=== PATIENT | male | born 1980 | race Caucasian/White ===

== ENCOUNTER 2023-02-27 14:32 | Outpatient (AMB) | payer OTHER, SELFPAY ==
--- NOTE | 2023-02-27 14:33 | A.OFFVIS_ITS ---
Intake Vital Signs 02/27/23 14:36 Height 6 ft 1 in Weight 284 lb 6.341 oz BMI 37.5 BP 122/80 Blood Pressure Location Lt brachial Position Sitting Pulse 85 Pulse Source Pulse Oximeter Pulse Oximetry (%) 95 Oxygen Delivery Method Room Air Intake Visit Reasons: Cough Quality Assurance Qa Lab Technician Required: No Service Promoter Salesperson: Service Promoter Salesperson offered & declined Accompanied by: Self / Same As Patient Allergies Penicillins [PENICILLINS] Allergy (Unknown, Unverified 02/27/23 14:40) REACTION UNKNOWN Penicillin Allergy (Unknown, Uncoded 02/27/23 14:40) unknown Medication List - Last Reconciled 02/27/23 by Charo Richter LPN albuterol sulfate 90 mcg/actuation (Ventolin HFA) 2 puffs inhalation Q4-6H PRN benzonatate 100 mg PO BID-TID PRN bupropion HCl 300 mg PO QAM fluoxetine 20 mg PO DAILY lorazepam 0.5 mg PO DAILY PRN HPI Cough HPI Details Gonzalo is a pleasant 42 year old male, former smoker with 12 pack year history, quit 7 years ago with underlying asthma. He was referred by PCP for persistent cough. He reports symptoms started about a month ago with dyspnea, wheezing, dry cough but sometimes productive with green sputum. He also notes allergic symptoms as well as sinus pressure. He denied any fever, chills or known sick contacts. He was seen at an urgent care when symptoms started, CXR reportedly normal and prescribed prednisone with no change in symptoms. He was then recently seen by PCP for ongoing symptoms, treated for bronchitis with albuterol MDI along with doxycycline and finished a 7 day course on 02/23/23 with no improvement in symptoms. He can not say for certain if he had childhood as thma but was prescribed an inhaler at some point in adolescence but never used it. He denies any recent PFT. He does report environmental allergies and has a dog. He denies any recent allergy testing. He denies any family history of lung conditions. [facility] Social History (Updated 02/27/23 @ 14:43 by Charo Richter LPN) Patient Tobacco Use Status: Former Tobacco user Tobacco use type: Cigarette Cigarette Packs Per Day: 1 Cigarettes Per Day: 20 Years Smoked: 20 years intermittently. Review of Systems Const Denies chills, Denies excessive sweating, Denies fever(s), Denies headache(s) and Denies night sweats Eyes Denies dry eyes, Denies irritation and Denies itchy eyes ENT Reports Normal hearing present, Denies headache(s), Denies nasal congestion, Denies nasal discharge, Denies post nasal drip and Denies sore throat Card Denies chest pain, Denies chest pain at rest, Denies chest pain with activity, Denies leg edema and Denies paroxysmal nocturnal dyspnea Resp Denies excessive phlegm production, Denies pain on inspiration, Denies pain with cough and Denies stridor Musc Denies myalgias Neuro Reports Normal hearing present and Denies headache(s) Endo Denies excessive sweating Carlos/Lymph Denies lymphadenopathy Aller/Immun Denies itchy eyes and Denies seasonal rhinorrhea Physical Exam Vital Signs: Last Vital Signs Pulse 85 02/27/23 14:36 BP 122/80 02/27/23 14:36 Pulse Ox 95 02/27/23 14:36 Oxygen Delivery Method Room Air 02/27/23 14:36 BMI result Body Mass Index 37.5 Const General: cooperative, comfortable, no acute distress, well developed and alert Nutritional Appearance: obese Orientation/consciousness: patient oriented x3 Limitations: no limitations HEENT Head: Yes normal to inspection, Yes normocephalic and Yes atraumatic Ears: hearing grossly normal bilaterally and external ears normal Eyes General: appearance normal, both eyes and all related structures Eyelids: Yes eyelids normal Sclerae: sclerae normal EOM: EOMs intact bilaterally Neck Neck: Yes normal visual inspection and Yes no lymphadenopathy Lymphatic: no lymphadenopathy noted Chest Chest palpation & inspection: normal inspection of the chest Resp Effort & Inspection: normal respiratory effort, able to speak in complete sentences, no audible wheezes, no stridor, not tachypneic, no tripod positioning and no use of accessory muscles Auscultation: crackles (inspiratory faint crackles bilateral bases) and wheezes expiratory wheezes and throughout Cardio Jugular venous distension: no JVD Rate: regular rate Rhythm: regular rhythm Skin Other: warm, dry General skin exam: no rashes or lesions noted Neuro General: patient oriented x3 Cranial nerves: Yes Normal hearing present Cognition (Neuro): normal cognition Gait exam (Neuro): Normal gait present Extrem General: Yes normal to inspection, Yes capillary refill normal, Yes no clubbing, cyanosis or edema and Yes no pedal edema Psych Appearance: grossly normal and well kempt Speech and movement: Normal speech and movement present and Clear speech present Affect: normal affect Attitude: cooperative Thought process: Normal thought process present Thought content: Normal thought content present Insight: Good insight present (Psych) Judgement: Good judgement present (Psych) Assessment & Plan Assessment & Plan (1) Asthma: Code(s): J45.909 - Unspecified asthma, uncomplicated (2) Environmental allergies: Code(s): Z91.09 - Other allergy status, other than to drugs and biological substances (3) Cough: Code(s): R05.9 - Cough, unspecified Plan Gonzalo presents with acute symptoms that have been unresponsive to doxycycline and short course of prednisone. Will treat for bronchopneumonia with Vantin and extended course of prednisone, as patient with inspiratory crackles and wh eezing. Will also send for CXR and lab work. If symptoms do not resolve, consider sputum and chest CT. Once patient is back to baseline, will have PFT performed. All questions were answered and patient is in agreement of plan. Will follow up in four weeks. Orders: Orders Rast Allergen 02/27/23 Z91.09 - Other allergy status, other than to drugs and biological substances XR chest 2V 02/27/23 R05.9 - Cough, unspecified Complete Blood Count Auto Diff 02/27/23 R05.9 - Cough, unspecified PFT pulmonary function test 02/27/23 J45.909 - Unspecified asthma, uncomplicated, R05.9 - Cough, unspecified Medications: New cefpodoxime must administer with a meal/food 200 mg PO BID 14 tabs 0RF prednisone see taper instructions; 40 mg Daily for three days, 30 mg daily for three days, 20 mg daily for three days, 10 mg daily for three days 10 mg PO DIRECTED 30 tabs 0RF Coding Level of Care Code New Pt Level 4 (70226) Diagnoses Asthma J45.909 Environmental allergies Z91.09 Cough R05.9
[2023-02-27 14:36] VITALS: BP 122/80; PULSE 85; O2SAT 95; BMI 37.5
== END 2023-02-27 15:14 | disposition home or self-care (01) ==
PROVIDERS: PCP Internal Medicine; Visit Provider Nurse Practitioner Family
DX: J45.909 Unspecified asthma, uncomplicated (principal); Z91.09 Other allergy status, other than to drugs and biological substances; R05.9 Cough, unspecified
CPT/HCPCS: 99204

== ENCOUNTER 2023-02-27 14:32 | Outpatient (REF) | payer OTHER, SELFPAY ==
--- NOTE | ~2023-02-27 | XR_ITS ---
EXAMINATION: XR CHEST CLINICAL INFORMATION: Cough, unspecified COMPARISON: None available. TECHNIQUE: 2 views of the chest were obtained. 1537 FINDINGS: The lungs are slightly hypoinflated. There is no focal infiltrate, interstitial pulmonary edema or pneumothorax. Central peribronchial thickening is noted. No significant abnormality is noted involving the heart, mediastinum, bony thorax or soft tissues. XR/XR chest 2V IMPRESSION: No pneumonia. Central peribronchial thickening is noted, could be related to bronchitis.
[2023-02-27 15:31] LABS: MANUAL DIFF FLAG NO
[2023-02-27 15:44] LABS: Basophils Absolute Auto 0.1 X10*3/uL (0.0-0.2); Basophils Percent Auto 0.7 % (0-2); Eosinophils Absolute Auto 0.2 X10*3/uL (0.0-0.4); Eosinophils Percent Auto 2.9 % (0-4); Hematocrit 49.8 % (42.0-52.0); Hemoglobin 16.3 g/dl (14.0-18.0); Imm Gran Abs Auto 0.01 X10*3/uL (0.00-0.03); Imm Gran Pct Auto 0.1 % (0.0-0.4); Lymphocytes Absolute Auto 2.2 X10*3/uL (1.2-4.9); Lymphocytes Percent Auto 30.2 % (20-40); Mean Corpuscular HGB Conc 32.7 g/dl (31.0-36.0); Mean Corpuscular Hemoglobin 28.9 pg (27.0-33.0); Mean Corpuscular Volume 88.3 fL (80.0-98.0); Mean Platelet Volume 10.4 fL (9.4-12.4); Monocytes Percent Auto 14.2 % (2-11); Neutrophils Absolute Auto 3.7 x10*3/uL (2.0-8.3); Neutrophils Percent Auto 51.9 % (45-73); Platelet Count 202 X10*3/uL (160-400); Red Blood Count 5.64 X10*6/uL (4.60-5.80); Red Cell Distribution Width 13.1 % (11.0-16.0); White Blood Count 7.2 X10*3/uL (4.8-10.8)
== END 2023-02-27 14:33 | disposition home or self-care (01) ==
LOC: HO.LAB 14:32
PROVIDERS: PCP Internal Medicine; Visit Provider Nurse Practitioner Family
DX: J45.909 Unspecified asthma, uncomplicated (principal); R05.9 Cough, unspecified; Z91.09 Other allergy status, other than to drugs and biological substances
CPT/HCPCS: 36415; 71046; 82785; 85025; 86003

== ENCOUNTER 2023-03-12 08:21 | Outpatient (REF) | payer OTHER, SELFPAY ==
--- NOTE | 2023-03-12 08:56 | PFT_ITS ---
INDICATION: Asthma. SPIROMETRY: FEV1 to FVC of 79% with an FEV1 of 2.93 L, which is 63% predicted and FVC of 3.69 L, which is 63% predicted. No significant response to bronchodilators noted. Of note, the DCQ77-51 decreased to 51% predicted, suggesting small airway disease related likely to the diagnosis of asthma. Maximum voluntary ventilation only 58% predicted. Total lung capacity 63% predicted with an expiratory reserve volume of 60% predicted. DIFFUSION CAPACITY: DLCO 84% predicted. COMPARISONS: None. INTERPRETATION: No obstructive ventilatory defect. No significant response to bronchodilators noted, although the patient does have small airway disease, which could be secondary to asthma and also the elevated BMI. There is also a moderate decrease in the maximum voluntary ventilation, which could be secondary to deconditioning, although cannot rule out neuromuscular conditions. The patient does have a restrictive ventilatory defect consistent with mild to moderate restrictive lung disease, likely secondary to an elevated BMI and hyperexpansion of the lungs, although parenchymal lung conditions and or neuromuscular conditions could also be considered. Diffusion capacity is within normal limits. Clinical correlation is warranted. MD MAKENNA Vu/TALA / [phone]
== END 2023-03-12 08:22 | disposition home or self-care (01) ==
LOC: HO.RESP 08:21
PROVIDERS: PCP Internal Medicine; Visit Provider Nurse Practitioner Family
DX: R05.9 Cough, unspecified (principal); J45.909 Unspecified asthma, uncomplicated
CPT/HCPCS: 94010; 94727; 94729

== ENCOUNTER → 2023-03-12 08:56 | Outpatient (BNV) | payer OTHER, SELFPAY | PROVIDERS: PCP Internal Medicine; Visit Provider Hospitalist | DX: J45.909 Unspecified asthma, uncomplicated (principal) | CPT/HCPCS: 94060; 94727; 94729 ==

== ENCOUNTER 2023-04-04 15:04 | Outpatient (REF) | payer OTHER, SELFPAY ==
--- NOTE | ~2023-04-04 | CT_ITS ---
EXAMINATION: CT CHEST WITHOUT CONTRAST CLINICAL INFORMATION: Cough. COMPARISON: None available. TECHNIQUE: Multidetector volumetric CT imaging of the chest was done. Axial MIP volume rendering provided. Sagittal and coronal reformatted images were obtained. This CT examination was performed using dose optimization techniques as appropriate, variously including the following: *Automated exposure control *Adjustment of mA and/or kV according to patient size (this includes techniques or standardized protocols for targeted exams where dose is matched to indication/reason for exam; i.e. extremities or head) *Use of iterative reconstruction technique DLP: 359 mGy-cm. FINDINGS: CUSTOMER RELATIONS REPRESENTATIVE: Well-expanded lungs. LUNGS: Lungs are clear with no acute pneumonic process seen. There are no pulmonary nodules, mass, consolidation or groundglass density. MEDIASTINUM: The thyroid lobes are symmetrical and normal. Central trachea and the bronchi are widely patent. Heart size and the great vessels are normal caliber. There is no pericardial effusion. No abnormal-sized mediastinal or hilar lymph nodes seen. CORONARY ARTERY CALCIFICATION: There is mild coronary artery calcifications present. PLEURA: There is no pleural effusion. No pleural mass or thickening. AXILLA: There are small shotty bilateral axillary lymph nodes. UPPER ABDOMEN: Visualized liver, spleen, pancreas and bilateral adrenal glands are unremarkable. There are no radiopaque gallstones. OSSEOUS STRUCTURES: No aggressive lytic or sclerotic process seen. CT/CT chest wo IV con IMPRESSION: Unremarkable CT chest exam. Fleischner guidelines were followed.
== END 2023-04-04 15:05 | disposition home or self-care (01) ==
LOC: HO.CT 15:04
PROVIDERS: Visit Provider Nurse Practitioner Family
DX: R05.9 Cough, unspecified (principal)
CPT/HCPCS: 71250

== ENCOUNTER 2023-04-10 14:58 | Outpatient (AMB) | payer OTHER, SELFPAY ==
[2023-04-10 15:05] VITALS: BP 110/80; PULSE 80; O2SAT 95
--- NOTE | 2023-04-10 15:05 | MHC.OFFVIS ---
Intake Vital Signs 04/10/23 15:05 Weight 286 lb 9.615 oz BP 110/80 Blood Pressure Location Lt brachial Position Sitting Pulse 80 Pulse Source Pulse Oximeter Pulse Oximetry (%) 95 Oxygen Delivery Method Room Air Intake Visit Reasons: CT Chest Follow Up/Cough Allergies Penicillins [PENICILLINS] Allergy (Unknown, Unverified 04/10/23 15:07) REACTION UNKNOWN Penicillin Allergy (Unknown, Uncoded 04/10/23 15:07) unknown Medication List - Last Reconciled 04/10/23 by Nguyen Franks LPN albuterol sulfate 90 mcg/actuation (Ventolin HFA) 2 puffs inhalation Q4-6H PRN albuterol sulfate 2.5 mg (3 mL) inhalation Q4-6H PRN benzonatate 100 mg PO BID-TID PRN bupropion HCl 300 mg PO QAM cefpodoxime 200 mg PO BID fluoxetine 20 mg PO DAILY fluticasone propion-salmeterol 250-50 mcg/dose (Advair Diskus) 1 inh inhalation Q12H ipratropium bromide 2.5 mL inhalation Q6H PRN ipratropium-albuterol 0.5 mg-3 mg(2.5 mg base)/3 mL 3 mL inhalation Q6H PRN lorazepam 0.5 mg PO DAILY PRN prednisone 10 mg PO DIRECTED HPI CT Chest Follow Up/Cough HPI Details Gonzalo is a pleasant 42 year old male, former smoker with 12 pack year history, quit 7 years ago with underlying asthma. He was referred by PCP for persistent cough. He was sent for PFT and treated with prednisone, antibiotics and placed on daily ICS/LABA. Since the last visit, he reports significant improvements in his symptoms. He reports almost feeling back to baseline. He has been able to attend the gym regularly with mild wheezing noted otherwise, asymptomatic. Today he presents to review chest CT. [facility] Social History (Updated 02/27/23 @ 14:43 by Charo Richter LPN) Patient Tobacco Use Status: Former Tobacco user Tobacco use type: Cigarette Cigarette Packs Per Day: 1 Cigarettes Per Day: 20 Years Smoked: 20 years intermittently. Review of Systems Const Denies chills, Denies excessive sweating, Denies fever(s), Denies headache(s) and Denies night sweats Eyes Denies dry eyes, Denies irritation and Denies itchy eyes ENT Reports Normal hearing present, Denies headache(s), Denies nasal congestion, Denies nasal discharge, Denies post nasal drip and Denies sore throat Card Denies chest pain, Denies chest pain at rest, Denies chest pain with activity, Denies claudication, Denies leg edema, Denies dyspnea, Denies dyspnea on exertion, Denies orthopnea and Denies paroxysmal nocturnal dyspnea Resp Denies chest congestion, Denies cough, Denies excessive phlegm production, Denies pain on inspiration, Denies pain with cough, Denies dyspnea, Denies dyspnea on exertion and Denies stridor Musc Denies myalgias Neuro Reports Normal hearing present and Denies headache(s) Endo Denies excessive sweating Carlos/Lymph Denies lymphadenopathy Aller/Immun Denies itchy eyes and Denies seasonal rhinorrhea Physical Exam Vital Signs: Last Vital Signs Pulse 80 04/10/23 15:05 BP 110/80 04/10/23 15:05 Pulse Ox 95 04/10/23 15:05 Oxygen Delivery Method Room Air 04/10/23 15:05 Const General: cooperative, comfortable, no acute distress, well developed and alert Orientation/consciousness: patient oriented x3 Limitations: no limitations HEENT Head: Yes normal to inspection, Yes normocephalic and Yes atraumatic Ears: hearing grossly normal bilaterally and external ears normal Eyes General: appearance normal, both eyes and all related structures Eyelids: Yes eyelids normal Sclerae: sclerae normal EOM: EOMs intact bilaterally Neck Neck: Yes normal visual inspection and Yes no lymphadenopathy Lymphatic: no lymphadenopathy noted Chest Chest palpation & inspection: normal inspection of the chest Resp Effort & Inspection: normal respiratory effort, able to speak in complete sentences, no audible wheezes, no stridor, not tachypneic, no tripod positioning and no use of accessory muscles Auscultation: crackles (inspiratory faint crackles bilateral bases) and wheezes expiratory wheezes and throughout Cardio Jugular venous distension: no JVD Rate: regular rate Rhythm: regular rhythm Skin Other: warm, dry General skin exam: no rashes or lesions noted Neuro General: patient oriented x3 Cranial nerves: Yes Normal hearing present Cognition (Neuro): normal cognition Gait exam (Neuro): Normal gait present Extrem General: Yes normal to inspection, Yes capillary refill normal, Yes no clubbing, cyanosis or edema and Yes no pedal edema Psych Appearance: grossly normal and well kempt Speech and movement: Normal speech and movement present and Clear speech present Affect: normal affect Attitude: cooperative Thought process: Normal thought process present Thought content: Normal thought content present Insight: Good insight present (Psych) Judgement: Good judgement present (Psych) Results Reviewed Results Reviewed: [facility] [address] [place] [id number] Scan Report Signed Patient: Gonzalo Curtis MR#: [id number] : 1980 Acct:[id number] Age/Sex: 42 / M ADM Date: 04/04/23 Loc: HO.CT Ordering Physician: Nimisha Covarrubias NP Date of Service: 04/04/23 Procedure(s): CT chest wo IV con Accession Number(s): [id number] cc: Nimisha Covarrubias NP~ EXAMINATION: CT CHEST WITHOUT CONTRAST CLINICAL INFORMATION: Cough.? COMPARISON: None available. TECHNIQUE: Multidetector volumetric CT imaging of the chest was done. Axial MIP volume rendering provided. Sagittal and coronal reformatted images were obtained.? This CT examination was performed using dose optimization techniques as appropriate, variously including the following: *Automated exposure control *Adjustment of mA and/or kV according to patient size (this includes techniques or standardized protocols for targeted exams where dose is matched to indication/reason for exam; i.e. extremities or head) *Use of iterative reconstruction technique DLP: 359 mGy-cm. FINDINGS: SURVEY RESEARCH CENTER DIRECTOR: Well-expanded lungs. LUNGS: Lungs are clear with no acute pneumonic process seen. There are no pulmonary nodules, mass, consolidation or groundglass density.? MEDIASTINUM: The thyroid lobes are symmetrical and normal. Central trachea and the bronchi are widely patent. Heart size and the great vessels are normal caliber. There is no pericardial effusion. No abnormal-sized mediastinal or hilar lymph nodes seen.? ? CORONARY ARTERY CALCIFICATION: There is mild coronary artery calcifications present. PLEURA: There is no pleural effusion. No pleural mass or thickening.? AXILLA: There are small shotty bilateral axillary lymph nodes.? UPPER ABDOMEN: Visualized liver, spleen, pancreas and bilateral adrenal glands are unremarkable. There are no radiopaque gallstones.? OSSEOUS STRUCTURES: No aggressive lytic or sclerotic process seen.? CT/CT chest wo IV con IMPRESSION: Unremarkable CT chest exam. ? Fleischner guidelines were followed. Assessment & Plan Assessment & Plan (1) Asthma: Code(s): J45.909 - Unspecified asthma, uncomplicated (2) Environmental allergies: Code(s): Z91.09 - Other allergy status, other than to drugs and biological substances Plan Since the last visit, Gonzalo reports resolution of cough after prednisone and Vantin. He reports intermittent wheezing with moderate exertion, otherwise reports significant improvements, advised to continue on Advair and use albuterol PRN. All questions were answered and patient is in agreement of plan. Will follow up in three months. Medications: Refilled fluticasone propion-salmeterol 250-50 mcg/dose (Advair Diskus) be sure to rinse mouth after each use 1 inh inhalation Q12H 60 ea 3RF Coding Level of Care Code Est Pt Level 4 (44532) Diagnoses Asthma J45.909 Environmental allergies Z91.09
== END 2023-04-10 15:18 | disposition home or self-care (01) ==
PROVIDERS: PCP Internal Medicine; Visit Provider Nurse Practitioner Family
DX: J45.909 Unspecified asthma, uncomplicated (principal); Z91.09 Other allergy status, other than to drugs and biological substances
CPT/HCPCS: 99214

== ENCOUNTER → 2023-04-10 14:58 | Outpatient (BNVA) | payer OTHER, SELFPAY | PROVIDERS: PCP Internal Medicine; Visit Provider Nurse Practitioner Family ==